=== PATIENT | female | born 1945 | race Caucasian/White ===

== ENCOUNTER 2017-07-31 11:58 | Emergency (ER) | payer BC, OTHER ==
[~2017-07-31] VITALS: Ht 167.6 cm; Wt 68.0 kg
[2017-07-31 12:18] VITALS: BP 154/85
== END 2017-07-31 14:06 | disposition home or self-care (01) ==
LOC: ER 11:59
DX: S93.602A Unspecified sprain of left foot, initial encounter (principal); E03.9 Hypothyroidism, unspecified; G40.909 Epilepsy, unspecified, not intractable, without status epilepticus; J45.909 Unspecified asthma, uncomplicated; G62.9 Polyneuropathy, unspecified; Z85.038 Personal history of other malignant neoplasm of large intestine; W01.0XXA Fall on same level from slipping, tripping and stumbling without subsequent striking against object, initial encounter; Y93.89 Activity, other specified; Y92.89 Other specified places as the place of occurrence of the external cause; Y99.8 Other external cause status
CPT/HCPCS: 73610-TC; A4606; Z7610

== ENCOUNTER 2018-09-17 15:08 | Emergency (ER) | payer BC ==
[~2018-09-17] VITALS: Ht 167.6 cm; Wt 68.0 kg
[2018-09-17 15:30] VITALS: BP 147/95
[2018-09-17] MEDS ORDERED: HYDROCODONE/APAP 5/325MG 1 EACH TABLET PO ONE (16:00)
[2018-09-17] MEDS ORDERED: HYDROCODONE/APAP 5/325MG 1 EACH TABLET ONE ×2 (16:00→16:20)
== END 2018-09-17 17:13 | disposition home or self-care (01) ==
LOC: ER 15:11
DX: S93.692A Other sprain of left foot, initial encounter (principal); G40.909 Epilepsy, unspecified, not intractable, without status epilepticus; J45.909 Unspecified asthma, uncomplicated; G62.9 Polyneuropathy, unspecified; E03.9 Hypothyroidism, unspecified; Z98.890 Other specified postprocedural states; Z85.038 Personal history of other malignant neoplasm of large intestine; X50.1XXA Overexertion from prolonged static or awkward postures, initial encounter; Y93.89 Activity, other specified; Y92.89 Other specified places as the place of occurrence of the external cause; Y99.8 Other external cause status
CPT/HCPCS: 71100-TC; 73630-TC

== ENCOUNTER 2021-03-17 11:46 | Emergency (ER) | payer MEDICAID ==
[~2021-03-17] VITALS: Ht 170.2 cm; Wt 69.9 kg
--- NOTE | 2021-03-17 12:10 | NUR ---
BIB SELF C/O L ANKLE PAIN 09/15 S/P GLF "I MISSED 2 STEPS" DENIES HEAD INJURY. CORINA PEDAL PULSES PRESENT. WILL CONTINUE TO MONITOR THE PATIENT.
--- NOTE | 2021-03-17 12:33 | NUR ---
MINING TECHNICIAN AT BEDSIDE FOR XRAY.
--- NOTE | 2021-03-17 13:31 | NUR ---
Patient discharged to home in stable condition. Written and verbal after care instructions given. Patient verbalizes understanding of instruction.
[2021-03-17 13:34] VITALS: BP 129/73
== END 2021-03-17 13:35 | disposition home or self-care (01) ==
LOC: ER 11:53
DX: S93.492A Sprain of other ligament of left ankle, initial encounter (principal); G40.909 Epilepsy, unspecified, not intractable, without status epilepticus; J45.909 Unspecified asthma, uncomplicated; G62.9 Polyneuropathy, unspecified; Z48.813 Encounter for surgical aftercare following surgery on the respiratory system; W10.9XXA Fall (on) (from) unspecified stairs and steps, initial encounter; Y93.89 Activity, other specified; Y92.22 Religious institution as the place of occurrence of the external cause; Y99.8 Other external cause status
CPT/HCPCS: 73610-TC

== ENCOUNTER 2021-07-12 12:23 | Emergency (ER) | payer MEDICAID ==
[~2021-07-12] VITALS: Ht 167.6 cm; Wt 68.9 kg
[2021-07-12 12:24] VITALS: BP 128/74
--- NOTE | 2021-07-12 12:24 | NUR ---
BIBS C/O R ANKLE PAIN "SPRAIN FEW DAYS AGO WHILE WALKING"
--- NOTE | 2021-07-12 12:37 | NUR ---
X RAY AT BEDSIDE
[2021-07-12] MEDS ORDERED: IBUP-1955 PO (13:15)
--- NOTE | 2021-07-12 13:27 | NUR ---
Patient discharged to home in stable condition. Written and verbal after care instructions given. Patient verbalizes understanding of instruction.
== END 2021-07-12 13:27 | disposition home or self-care (01) ==
LOC: ER 12:24
DX: S93.401A Sprain of unspecified ligament of right ankle, initial encounter (principal); J45.909 Unspecified asthma, uncomplicated; E03.9 Hypothyroidism, unspecified; Z86.69 Personal history of other diseases of the nervous system and sense organs; Z85.038 Personal history of other malignant neoplasm of large intestine; Z87.39 Personal history of other diseases of the musculoskeletal system and connective tissue; X50.1XXA Overexertion from prolonged static or awkward postures, initial encounter; Y93.01 Activity, walking, marching and hiking; Y92.89 Other specified places as the place of occurrence of the external cause; Y99.8 Other external cause status
CPT/HCPCS: 73610-TC

== ENCOUNTER 2022-08-22 17:26 | Emergency (ER) | payer MEDICAID ==
[~2022-08-22] VITALS: Ht 167.6 cm; Wt 69.9 kg
[~2022-08-22 17:26] MED LIST: IBUP-1955 PO
--- NOTE | 2022-08-22 17:56 | NUR ---
BIBS C/O SOB AND GENERAL CHEST PRESSURE X 1 WEEK. DENIES NAUSEA OR VOMITING. PLACED IN BED, AAOX4, BREATHING UNLABORED SATURATING AT 97%RA, ATTACHED TO MONITOR- NORMAL SINUS RHYTHM IN- 67.
[2022-08-22] MEDS ORDERED: ALBUTEROL FS 2.5 MG/3 ML VIAL.NEB CONTNEB ONE (18:00)
[2022-08-22] MEDS ORDERED: predniSONE 20 MG TABLET PO ONE (18:00)
[2022-08-22] MEDS ORDERED: IPRATROPIUM NEB FS 0.5 MG/2.5 ML AMPUL.NEB NEB ONE (18:00)
--- NOTE | 2022-08-22 18:11 | NUR ---
BLOOD DRAWN AND SENT TO LAB
[2022-08-22] MEDS ORDERED: predniSONE 20 MG TABLET ONE (18:18)
[2022-08-22] MEDS ORDERED: IPRATROPIUM NEB FS 0.5 MG/2.5 ML AMPUL.NEB ONE (18:21)
[2022-08-22] MEDS ORDERED: ALBUTEROL FS 2.5 MG/3 ML VIAL.NEB ONE (18:21)
[2022-08-22 18:52] LABS: BASOPHILS # (AUTO) 0.1 K/uL (0.0-0.2); BASOPHILS % (AUTO) 1.2 % (0.0-2.0); EOSINOPHILS % (AUTO) 2.6 % (0.0-6.0); HEMATOCRIT 42 % (33-45); LYMPHOCYTES # (AUTO) 1.4 K/uL (0.8-4.8); LYMPHOCYTES % (AUTO) 29.6 % (20.0-44.0); MEAN CORPUSCULAR HGB CONC 33 g/dl (31.0-36.0); MEAN CORPUSCULAR VOLUME 86 fL (82-100); MONOCYTES # (AUTO) 0.4 K/uL (0.1-1.30); MONOCYTES % (AUTO) 8.6 % (2.0-12.0); NEUTROPHILS # (AUTO) 2.7 K/uL (1.8-8.9); PLATELET COUNT (AUTO) 240 K/uL (150-450); RED BLOOD CELL COUNT(AUTO) 4.93 MIL/uL (4.0-5.2); WHITE BLOOD COUNT (AUTO) 4.6 K/uL (4.3-11.0)
[2022-08-22 19:11] LABS: CALCIUM, SERUM 10.3 mg/dL (8.5-10.1); CARBON DIOXIDE 25 mmol/L (21-32); CHLORIDE 107 mmol/L (98-107); CREATININE 0.8 mg/dL (0.6-1.3); GLUCOSE 102 mg/dL (74-106); SODIUM SERUM 142 mmol/L (136-145); UREA NITROGEN, BLOOD 12 mg/dL (7-18)
[2022-08-22 19:48] LABS: ALANINE AMINOTRANSFERASE 27 U/L (12-78); ALBUMIN 3.9 g/dL (3.4-5.0); ALKALINE PHOSPHATASE 127 U/L (46-116); ASPARTATE AMINOTRANSFERASE 19 U/L (15-37); BILIRUBIN,TOTAL 0.4 mg/dL (0.2-1.0); TOTAL PROTEIN, SERUM 7.4 g/dL (6.4-8.2)
[2022-08-22 20:29] LABS: BILIRUBIN,DIRECT 0.1 mg/dL (0.0-0.2)
[2022-08-22] MEDS ORDERED: LEVETIRACETAM (250 MG) 250 MG TABLET PO ONE (21:00)
[2022-08-22] MEDS ORDERED: GABAPENTIN 100 MG CAPSULE PO ONE (21:00)
[2022-08-22] MEDS ORDERED: GABAPENTIN 100 MG CAPSULE ONE (21:16)
--- NOTE | 2022-08-22 21:30 | NUR ---
OPERATOR RECEPTIONIST AT BEDSIDE FOR TROPONIN DRAW
[2022-08-22] MEDS ORDERED: ASPIRIN 325 MG TABLET PO ONE (22:00)
[2022-08-22] MEDS ORDERED: ASPIRIN 325 MG TABLET ONE (22:06)
--- NOTE | 2022-08-22 22:33 | NUR ---
IV removed. Catheter intact and site benign. Pressure and 4x4 applied to site. No bleeding noted.Patient discharged to home in stable condition. Written and verbal after care instructions given. Patient verbalizes understanding of instruction.
[2022-08-22 22:55] VITALS: BP 145/75
== END 2022-08-22 22:33 | disposition home or self-care (01) ==
LOC: ER 17:28
DX: R07.89 Other chest pain (principal); E03.9 Hypothyroidism, unspecified; J45.909 Unspecified asthma, uncomplicated; Z85.038 Personal history of other malignant neoplasm of large intestine
CPT/HCPCS: 99285; 71045; 93005; 85025; 80048; 80076; 85378; 36415; 84484 ×2; 94640 ×2; J7512

== ENCOUNTER 2023-02-16 16:32 | Emergency (ER) | payer MEDICAID ==
[~2023-02-16] VITALS: Ht 167.6 cm; Wt 69.9 kg
[2023-02-16 17:51] LABS: EOSINOPHILS # (AUTO) 0.1 K/uL (0.0-0.7); HEMATOCRIT 39 % (33-45); HEMOGLOBIN 12.9 g/dL (11.5-14.8); LYMPHOCYTES # (AUTO) 1.5 K/uL (0.8-4.8); LYMPHOCYTES % (AUTO) 34.3 % (20.0-44.0); MEAN CORPUSCULAR HEMOGLOBIN 29 PG (26.0-33.0); MEAN CORPUSCULAR HGB CONC 33 g/dl (31.0-36.0); MEAN CORPUSCULAR VOLUME 88 fL (82-100); MONOCYTES # (AUTO) 0.5 K/uL (0.1-1.30); MONOCYTES % (AUTO) 11.2 % (2.0-12.0); NEUTROPHILS # (AUTO) 2.2 K/uL (1.8-8.9); NEUTROPHILS % (AUTO) 50.5 % (43.0-81.0); PLATELET COUNT (AUTO) 241 K/uL (150-450); RED BLOOD CELL COUNT(AUTO) 4.45 MIL/uL (4.0-5.2); RED CELL DISTRIBUTION WIDTH 13.9 % (11.5-15.0); WHITE BLOOD COUNT (AUTO) 4.3 K/uL (4.3-11.0)
[2023-02-16] MEDS ORDERED: IPRATROPIUM NEB FS 0.5 MG/2.5 ML AMPUL.NEB NEB ONE (18:00)
[2023-02-16] MEDS ORDERED: ALBUTEROL FS 2.5 MG/3 ML VIAL.NEB NEB ONE (18:00)
[2023-02-16] MEDS ORDERED: IPRATROPIUM NEB FS 0.5 MG/2.5 ML AMPUL.NEB ONE (18:05)
[2023-02-16] MEDS ORDERED: ALBUTEROL FS 2.5 MG/3 ML VIAL.NEB ONE (18:05)
[2023-02-16 18:11] VITALS: O2SAT 97
[2023-02-16 18:25] LABS: CALCIUM, SERUM 9.7 mg/dL (8.5-10.1); CREATININE 0.7 mg/dL (0.6-1.3); POTASSIUM 3.9 mmol/L (3.5-5.1)
[2023-02-16 18:26] VITALS: O2SAT 98
[2023-02-16] MEDS ORDERED: AZIT250T13 PO (20:23)
[2023-02-16] MEDS ORDERED: ALBU18HF2 INH (20:23)
[2023-02-16 20:45] VITALS: BP 135/70; TEMP 98; O2SAT 98
== END 2023-02-16 20:45 | disposition home or self-care (01) ==
LOC: ER 16:54
DX: R07.89 Other chest pain (principal); R05.9 Cough, unspecified; R06.02 Shortness of breath; G40.909 Epilepsy, unspecified, not intractable, without status epilepticus; J45.909 Unspecified asthma, uncomplicated; E03.9 Hypothyroidism, unspecified; Z98.890 Other specified postprocedural states; Z79.899 Other long term (current) drug therapy
CPT/HCPCS: 36415; 71045-TC; 80048-TC; 83605-TC; 85025-TC; 87040-TC

== ENCOUNTER 2023-07-22 20:03 | Emergency (ER) | payer MEDICAID ==
[~2023-07-22] VITALS: Ht 170.2 cm; Wt 77.1 kg
[~2023-07-22 20:03] MED LIST changes: +ALBU18HF2 INH; +AZIT250T13 PO
[2023-07-22] MEDS ORDERED: KETO10TA2 PO (21:19)
[2023-07-22] MEDS: KETOROLAC TROMETHAMINE INJ 60 MG/2 ML VIAL IM ONE (21:23)
[2023-07-22] MEDS ORDERED: KETOROLAC TROMETHAMINE INJ 30 MG/ML VIAL ONE (21:23)
[2023-07-22 21:42] VITALS: BP 130/74; TEMP 98.4; O2SAT 96
== END 2023-07-22 21:42 | disposition home or self-care (01) ==
LOC: ER 20:06
DX: M79.662 Pain in left lower leg (principal); G40.909 Epilepsy, unspecified, not intractable, without status epilepticus; J45.909 Unspecified asthma, uncomplicated; Z85.038 Personal history of other malignant neoplasm of large intestine; Z87.39 Personal history of other diseases of the musculoskeletal system and connective tissue; E03.9 Hypothyroidism, unspecified
CPT/HCPCS: 99285; 93971; 93926; 96372; J1885

== ENCOUNTER 2024-01-03 18:17 | Emergency (ER) | payer MEDICAID ==
[~2024-01-03] VITALS: Ht 167.6 cm; Wt 68.9 kg
[~2024-01-03 18:17] MED LIST changes: +KETO10TA2 PO
[2024-01-03 18:40] VITALS: BP 130/70; TEMP 98.2; O2SAT 96
[2024-01-03] MEDS ORDERED: CLIN300C12 PO (18:57)
== END 2024-01-03 19:02 | disposition home or self-care (01) ==
LOC: IVT 18:23
DX: L02.212 Cutaneous abscess of back [any part, except buttock and flank] (principal); G40.909 Epilepsy, unspecified, not intractable, without status epilepticus; J45.909 Unspecified asthma, uncomplicated; E03.9 Hypothyroidism, unspecified; Z98.890 Other specified postprocedural states; Z79.899 Other long term (current) drug therapy

== ENCOUNTER 2024-04-15 08:08 | Emergency (ER) | payer MEDICAID, OTHER ==
[~2024-04-15] VITALS: Ht 162.6 cm; Wt 64.0 kg
[~2024-04-15 08:08] MED LIST changes: +CLIN300C12 PO
[2024-04-15 08:25] VITALS: BP 104/65; TEMP 97.8
[2024-04-15] MEDS ORDERED: PSEUDOEPHEDRINE HCL 30 MG TABLET ONE (08:49)
[2024-04-15] MEDS: PSEUDOEPHEDRINE HCL 30 MG TABLET PO ONE (08:56)
[2024-04-15] MEDS ORDERED: BENZONATATE 100 MG CAPSULE PO ONE (08:58)
[2024-04-15] MEDS: BENZONATATE 100 MG CAPSULE PO PRN (09:00)
[2024-04-15] MEDS ORDERED: BENZ-13 PO (09:43)
[2024-04-15] MEDS ORDERED: ALBU18HF2 INH (09:43)
[2024-04-15 09:59] VITALS: O2SAT 95
== END 2024-04-15 10:05 | disposition home or self-care (01) ==
LOC: ER 08:12
DX: R05.9 Cough, unspecified (principal); R09.81 Nasal congestion; E03.9 Hypothyroidism, unspecified; G40.909 Epilepsy, unspecified, not intractable, without status epilepticus; J45.909 Unspecified asthma, uncomplicated
CPT/HCPCS: 71045-TC

== ENCOUNTER 2024-07-12 08:03 | Emergency (ER) | payer MEDICAID ==
[~2024-07-12] VITALS: Ht 167.6 cm; Wt 67.1 kg
[~2024-07-12 08:03] MED LIST changes: +BENZ-13 PO
[2024-07-12] MEDS ORDERED: CEPH-570 PO (08:55)
[2024-07-12 09:20] VITALS: BP 125/68; TEMP 98.3; O2SAT 99
[2024-07-12 09:38] LABS: APPEARANCE,URINE SLIGHTLY CLOUDY (CLEAR); BILIRUBIN,URINE NEGATIVE (NEGATIVE); BLOOD, URINE 2+ Ery/uL (NEGATIVE); COLOR,URINE YELLOW (YELLOW); KETONES,URINE NEGATIVE (NEGATIVE); LEUKOCYTE ESTERASE ,URINE 3+ (NEGATIVE); NITRITE, URINE NEGATIVE (NEGATIVE); PROTEIN,URINE NEGATIVE (NEGATIVE); UGLUCOSE NEGATIVE (NEGATIVE); UROBILINOGEN,URINE 0.2 EU/dL (0.2)
[2024-07-12 09:46] LABS: ADD URINE CULTURE YES; BACTERIA,URINE Few /HPF (None Seen); SQUAMOUS EPITHELIAL CELL,UR 0-2 /HPF (None Seen); WBC,URINE 21-50 /HPF (0-3)
== END 2024-07-12 09:20 | disposition home or self-care (01) ==
LOC: ER 08:10
DX: N39.0 Urinary tract infection, site not specified (principal); E03.9 Hypothyroidism, unspecified; G40.909 Epilepsy, unspecified, not intractable, without status epilepticus; J45.909 Unspecified asthma, uncomplicated; Z79.899 Other long term (current) drug therapy
CPT/HCPCS: 81001; 87086-TC